=== PATIENT | male | born 1945 | race Caucasian/White ===

== ENCOUNTER 2016-07-11 16:07 | Inpatient (IN) | payer MEDICARE ==
[2016-07-11] VITALS (9 sets, daily range): BP systolic 106–159; BP diastolic 59–85; PULSE 70–104; RESP 20–24; TEMP 96.8–99.5; O2SAT 95–100
[~2016-07-11] VITALS: Ht 180.3 cm; Wt 91.6 kg
[2016-07-11] MEDS ORDERED: SODIUM CHLOR 0.9% 1000 ML INJ 1,000 ML IV ONE ×2 (16:10)
[2016-07-11] MEDS ORDERED: SODIUM CHLOR 0.9% 1000 ML INJ 100 ML IV ONE (16:10)
[2016-07-11] MEDS ORDERED: ACETAMINOPHEN 325 MG TAB PO ONE (16:15)
[2016-07-11] MEDS ORDERED: AZTREONAM INJ 2,000 MG in SODIUM CHLORIDE 0.9% INJ 100 ML IV ONE (16:15)
[2016-07-11] MEDS ORDERED: LEVOFLOXACIN 750 MG PREMIX INJ 150 ML IV ONE (16:15)
--- NOTE | 2016-07-11 16:20 | PD ---
HPI Chief Complaint: hypotension Time Seen by Provider: 16:10 Travel History International Travel<30 days: No Contact w/Intl Traveler<30days: No Traveled to known affect area: No History of Present Illness HPI 70-year-old male with history of head and neck cancer status post radiation therapy 15 years ago, brought in by EMS from home for evaluation of generalized malaise, shortness of breath, generalized weakness. The patient reports that for the past 4 days he has been feeling sick with cough and fevers between 99 and 100F. Today he took a leftover cefuroxime pill in his medicine cabinet, and shortly after became extremely weak. 911 was called and when they arrived they noted the patient had blood pressure of 80s over 40s, was diaphoretic, had O2 saturation in the 80's. Patient denies history of cardio pulmonary disease. Cough has been productive of whitish/yellowish sputum. No hemoptysis. No chest pain. No vomiting or diarrhea. No abdominal pain. No dyspnea. He was given a 500 cc normal saline bolus by EMS and was started on 100% nonrebreather mask. Upon arrival to the emergency department the patient reports that he feels improved. PFSH Social History Tobacco Use: No (Former smoker) Allergies-Medications (Allergen,Severity, Reaction): Coded Allergies: Amoxicillin (Verified Allergy, Unknown, 07/11/16) Cefuroxime sodium (Verified Allergy, Unknown, 07/11/16) Metronidazole (Verified Adverse Reaction, Severe, PATIENT REFUSES DUE TO SEVERE DIARRHEA FROM METRONIDAZOLE, 07/11/16) Reported Meds & Prescriptions Reported Meds & Active Scripts Active Reported Duoneb (Ipratropium-Albuterol Neb) 0.5-2.5 Mg/3 Ml Neb 1 Nebule INH Q4HR NEB Tramadol (Tramadol HCl) 50 Mg Tab 50 Mg PO Q6H PRN Levocetirizine 5 Mg Tab 5 Mg PO DAILY Levothyroxine (Levothyroxine Sodium) 175 Mcg Tab 175 Mcg PO DAILY Amlodipine (Amlodipine Besylate) 10 Mg Tab 10 Mg PO DAILY Losartan-Hydrochlorothiazide 100-12.5 Mg Tab 1 Tab PO DAILY Lansoprazole 30 Mg Capdr 30 Mg PO DAILY Temazepam 30 Mg Cap 30 Mg PO HS PRN Meclizine (Meclizine HCl) 25 Mg Tab 25 Mg PO QID PRN Review of Systems Except as stated in HPI: all other systems reviewed are Neg Physical Exam Narrative GENERAL: Well-developed, well-nourished, awake, alert, diaphoretic, SKIN: Diaphoretic. No rash. HEAD: Atraumatic. Normocephalic. EYES: Pupils equal and round. No scleral icterus. No injection or drainage. ENT: Mucous membranes pink and moist. No tongue or lip swelling. No drooling or stridor. Normal phonation. NECK: Trachea midline. No JVD. CARDIOVASCULAR: Tachycardic, regular. RESPIRATORY: No accessory muscle use. Clear to auscultation. Breath sounds equal bilaterally. GASTROINTESTINAL: Abdomen soft, non-tender, nondistended. Hepatic and splenic margins not palpable. MUSCULOSKELETAL: No obvious deformities. No clubbing. No cyanosis. Right upper extremity edema which patient states his lymphedema secondary to neck radiation and is unchanged. No lower extremity edema. NEUROLOGICAL: Awake and alert. No obvious cranial nerve deficits. Motor grossly within normal limits. Normal speech. PSYCHIATRIC: Appropriate mood and affect; insight and judgment normal. Data Data Last Documented VS Vital Signs Date Time Temp Pulse Resp B/P Pulse Ox O2 Delivery O2 Flow Rate FiO2 07/11/16 18:05 85 20 141/64 100 Nasal Cannula 2 07/11/16 16:54 96.8 Orders Electrocardiogram (07/11/16 16:10) Complete Blood Count With Diff (07/11/16 16:10) Comprehensive Metabolic Panel (07/11/16 16:10) Prothrombin Time / Inr (Pt) (07/11/16 16:10) Act Partial Throm Time (Ptt) (07/11/16 16:10) Lactic Acid Sepsis Protocol (07/11/16 16:10) Urinalysis - C+S If Indicated (07/11/16 16:10) Influenzae A/B Antigen (07/11/16 16:10) Blood Culture (07/11/16 16:10) Chest, Single Ap (07/11/16 16:10) Arterial Blood Gas (Abg) (07/11/16 16:10) Blood Glucose (07/11/16 16:10) Ecg Monitoring (07/11/16 16:10) Iv Access Insert/Monitor (07/11/16 16:10) Oximetry (07/11/16 16:10) Oxygen Administration (07/11/16 16:10) Acetaminophen (Tylenol) (07/11/16 16:15) Sodium Chlor 0.9% 1000 Ml Inj (Ns 1000 M (07/11/16 16:10) Sodium Chlor 0.9% 1000 Ml Inj (Ns 1000 M (07/11/16 16:10) Sodium Chlor 0.9% 1000 Ml Inj (Ns 1000 M (07/11/16 16:10) Aztreonam Inj (Azactam Inj) (07/11/16 16:15) Levofloxacin 750 Mg Premix Inj (Levaquin (07/11/16 16:15) Ckmb (Isoenzyme) Profile (07/11/16 16:21) Troponin I (07/11/16 16:21) Ct Pulmonary Angiogram (07/11/16 17:13) Iohexol 350 Inj (Omnipaque 350 Inj) (07/11/16 17:56) Admit Order (Ed Use Only) (07/11/16 18:22) Labs Laboratory Tests Test 07/11/16 16:30 White Blood Count 6.1 TH/MM3 Red Blood Count 4.43 MIL/MM3 Hemoglobin 13.6 GM/DL Hematocrit 39.8 % Mean Corpuscular Volume 89.8 FL Mean Corpuscular Hemoglobin 30.8 PG Mean Corpuscular Hemoglobin 34.3 % Concent Red Cell Distribution Width 12.9 % Platelet Count 290 TH/MM3 Mean Platelet Volume 7.3 FL Neutrophils (%) (Auto) 67.2 % Lymphocytes (%) (Auto) 28.7 % Monocytes (%) (Auto) 2.7 % Eosinophils (%) (Auto) 0.5 % Basophils (%) (Auto) 0.9 % Neutrophils # (Auto) 4.0 TH/MM3 Lymphocytes # (Auto) 1.8 TH/MM3 Monocytes # (Auto) 0.2 TH/MM3 Eosinophils # (Auto) 0.0 TH/MM3 Basophils # (Auto) 0.1 TH/MM3 CBC Comment DIFF FINAL Differential Comment Prothrombin Time 10.8 SEC Prothromb Time International 1.0 RATIO Ratio Activated Partial 24.0 SEC Thromboplast Time Blood Gas Puncture Site LT RADIAL Blood Gas Patient Temperature 98.6 Blood Gas HCO3 22 mmol/L Blood Gas Base Excess -2.9 mmol/L Blood Gas Oxygen Saturation 95 % Arterial Blood pH 7.37 Arterial Blood Partial 39 mmHG Pressure CO2 Arterial Blood Partial 92 mmHG Pressure O2 Arterial Blood Oxygen Content 18.3 Vol % Arterial Blood 1.4 % Carboxyhemoglobin Arterial Blood Methemoglobin 0.9 % Blood Gas Hemoglobin 13.7 G/DL Oxygen Delivery Device NONREBREATHER Blood Gas Liter Flow 15 L/M Sodium Level 138 MEQ/L Potassium Level 3.6 MEQ/L Chloride Level 104 MEQ/L Carbon Dioxide Level 26.1 MEQ/L Anion Gap 8 MEQ/L Blood Urea Nitrogen 21 MG/DL Creatinine 1.30 MG/DL Estimat Glomerular Filtration 55 ML/MIN Rate Random Glucose 175 MG/DL Lactic Acid Level 2.1 mmol/L Calcium Level 7.9 MG/DL Total Bilirubin 0.3 MG/DL Aspartate Amino Transf 14 U/L (AST/SGOT) Alanine Aminotransferase 20 U/L (ALT/SGPT) Alkaline Phosphatase 64 U/L Total Creatine Kinase 42 U/L Troponin I 0.03 NG/ML Total Protein 6.1 GM/DL Albumin 2.8 GM/DL [facility] Medical Decision Making Medical Screen Exam Complete: Yes Emergency Medical Condition: Yes Medical Record Reviewed: Yes Interpretation(s) EKG: Sinus, rate 98, normal axis, normal intervals, slight diffuse ST depressions, no ST segment elevations. No T-wave inversions. Differential Diagnosis Sepsis, pneumonia, metabolic abnormality, PE, allergic reaction/anaphylaxis Narrative Course Initial vital signs show heart rate 104, blood pressure 106/59, pulse ox 95% on 100% nonrebreather, rectal temp of 96.8F. CBC is unremarkable. CMP is remarkable for BUN 21, creatinine 1.3, GFR 55, random glucose 175, albumin 2.8, total protein 6.1. Lactic acid is 2.1. Troponin is 0.03. Chest x-ray: Mild right lower lung infiltrate. ABG on 100% nonrebreather: PH 7.37, PCO2 39, PO2 92, O2 saturation 95%. Patient and the patient's were made aware of all findings. 100% nonrebreather switched to nasal cannula. Patient was given 3 L normal saline IV and started on Azactam and Levaquin shortly after arrival to the emergency department for suspected pulmonary source for sepsis. Given history of cancer and above symptoms and lab findings, CT pulmonary room ordered to rule out PE. CT pulmonary angiogram: CONCLUSION: 1. No evidence of PE. 2. There are some patchy infiltrates in the right upper and right lower lung and a few scattered infiltrates in the left lung suggestive of an inflammatory process such as pneumonia. 3. There are chronic appearing parenchymal changes in both apices. 4. Nonspecific prominent mediastinal lymph nodes. If clinically indicated, recommend a PET CT for hypermetabolic evaluation. Patient was made aware of CT findings. He states he recently had a PET scan and was told that everything looks good. Patient's blood pressure has improved significantly to 140s over 80s after 3 L of normal saline IV. O2 saturation is now 100% on 2 L nasal cannula. Because the patient initially presented with hypotension and hypoxia, the patient will be admitted for further treatment and evaluation of sepsis and pneumonia. Case discussed with [facility] hospitalist Dr. Singh. The patient will be admitted to their service under Dr. Hairston. Critical Care Narrative Aggregate critical care time was 40 minutes. Time to perform other separately billable procedures was not included in the critical care time. My time did not include minutes spent treating any other patients simultaneously or on activities that did not directly contribute to the patient's treatment. The services I provided to this patient were to treat and/or prevent clinically significant deterioration that could result in: , permanent disability, worsening clinical condition, respiratory failure I provided critical care services requiring my management, as noted below: Chart data review, documentation time, medication orders and management, vital sign assessments/reviewing monitor data, ordering and reviewing lab tests, ordering and interpreting/reviewing x-rays and diagnostic studies, care of the patient and discussion of the patient with the admitting physicians. Diagnosis Primary Impression: Sepsis Qualified Code: A41.9 - Sepsis, due to unspecified organism Additional Impression: Pneumonia Qualified Code: J18.9 - Pneumonia of both lungs due to infectious organism, unspecified part of lung Admitting Information Admitting Physician Requests: Admit Eduarod Roach MD July 11, 2016 16:20
[2016-07-11] MEDS ORDERED: MECL-62 PO (16:21)
[2016-07-11] MEDS ORDERED: OMEP10CA PO (16:21)
[2016-07-11] MEDS ORDERED: PRED20 PO (16:21)
[2016-07-11] MEDS ORDERED: HTN MED (16:21)
[2016-07-11] MEDS ORDERED: TEMA7.5C PO (16:21)
[2016-07-11 16:38] LABS: BASOPHIL # 0.1 TH/MM3 (0-0.2); BASOPHIL % 0.9 % (0.0-2.0); BLOOD GAS BASE EXCESS -2.9 mmol/L (-2-2); BLOOD GAS CARBOXYHEMOGLOBIN 1.4 % (0-4); BLOOD GAS HCO3 22 mmol/L (22-26); BLOOD GAS METHEMOGLOBIN 0.9 % (0-2); BLOOD GAS O2 HGB SATURATION 95 % (90-100); BLOOD GAS OXYGEN CONTENT 18.3 Vol % (12.0-20.0); BLOOD GAS PCO2 39 mmHG (38-42); BLOOD GAS PO2 92 mmHG (61-120); BLOOD GAS TOTAL HGB 13.7 G/DL (12.0-16.0); CRITICAL VALUE NO; EOSINOPHIL % 0.5 % (0.0-4.0); HEMATOCRIT 39.8 % (39.0-51.0); HEMO FLAGS DIFF FINAL; LYMPH % 28.7 % (9.0-44.0); LYMPHOCYTE # 1.8 TH/MM3 (1.0-4.8); MEAN CELL VOLUME 89.8 FL (80.0-100.0); MEAN CORPUSCULAR HEMOGLOBIN 30.8 PG (27.0-34.0); MEAN CORPUSCULAR HGB CONC 34.3 % (32.0-36.0); MONO % 2.7 % (0.0-8.0); NEUT % 67.2 % (16.0-70.0); OXYGEN DEVICE NONREBREATHER; PLATELET COUNT 290 TH/MM3 (150-450); RED BLOOD COUNT 4.43 MIL/MM3 (4.50-5.90); RED CELL DISTRIBUTION WIDTH 12.9 % (11.6-17.2); TEMP CORR TO 98.6; WHITE BLOOD COUNT 6.1 TH/MM3 (4.0-11.0)
[2016-07-11 16:39] LABS: DRAW SITE LT RADIAL; LITER FLOW 15 L/M; NUMBER OF ARTERIAL PUNCTURES 2; STAT YES; ULNAR PULSE PRESENT
[2016-07-11 16:46] LABS: CHLORIDE 104 MEQ/L (98-107); POTASSIUM 3.6 MEQ/L (3.5-5.1); SODIUM (NA) 138 MEQ/L (136-145)
--- NOTE | 2016-07-11 16:46 | RADHPO ---
EXAM DATE/TIME: 07/11/2016 16:31 [facility] COMPARISON: No previous studies available for comparison. INDICATIONS : Patient extremely short of breath, reddness in face with swelling in face and right arm. MEDICAL HISTORY : None. SURGICAL HISTORY : None. ENCOUNTER: Initial ACUITY: 1 day PAIN SCORE: 7/10 LOCATION: Bilateral upper chest FINDINGS: A single view of the chest demonstrates a mild infiltrate in the right lung base. Otherwise, the lung s are grossly clear.. The cardiomediastinal contours are unremarkable. Osseous structures are intac t. CONCLUSION: Mild right lower lung infiltrate. Parviz Chen MD on July 11, 2016 at 16:41 Board Certified Radiologist. This report was verified electronically.
[2016-07-11 16:50] LABS: ANION GAP 8 MEQ/L (5-15); BICARBONATE 26.1 MEQ/L (21.0-32.0); BLOOD UREA NITROGEN 21 MG/DL (7-18)
[2016-07-11 16:53] LABS: ALT (GPT) 20 U/L (12-78); AST (GOT) 14 U/L (15-37); GLOMERULAR FILTRATION RATE 55 ML/MIN (>89)
[2016-07-11 16:55] LABS: TOTAL BILIRUBIN ADULT 0.3 MG/DL (0.2-1.0)
[2016-07-11 16:56] LABS: ALKALINE PHOSPHATASE 64 U/L (45-117)
[2016-07-11 16:58] LABS: PROTHROMBIN TIME - PATIENT 10.8 SEC (9.8-11.6)
[2016-07-11] MEDS ORDERED: IOHEXOL 350 MG/ML 10 ML VIAL (for RAD DIAG) IV ONE (17:56)
--- NOTE | 2016-07-11 18:04 | RADHPO ---
EXAM DATE/TIME: 07/11/2016 17:43 [facility] COMPARISON: No previous studies available for comparison. INDICATIONS : Weak, hypotensive and diaphoretic. Evaluate for embolism. IV CONTRAST: 65 cc Omnipaque 350 (iohexol) IV RADIATION DOSE: 19.98 CTDIvol (mGy) MEDICAL HISTORY : Hypertension. Deep venous thrombosis. Gastroesophageal reflux disease. SURGICAL HISTORY : None. ENCOUNTER: Initial ACUITY: 1 day PAIN SCALE: 0/10 LOCATION: chest TECHNIQUE: Volumetric scanning of the chest was performed using a pulmonary embolism protocol MIP images were re constructed. Using automated exposure control and adjustment of the mA and/or kV according to patien t size, radiation dose was kept as low as reasonably achievable to obtain optimal diagnostic quality images. FINDINGS: PULMONARY ARTERIES: No filling defects are seen in the pulmonary arteries through the segmental level. LUNGS: There are some changes in both apices which I suspect are chronic. However there is a patchy reticula r nodular infiltrate in the right upper lung. A few small scattered infiltrates are seen in the left lung. The appearance is suggestive of an inflammatory process such as pneumonia. There is also patchy infiltrate in the posterior right lung base. PLEURAE: There is no pleural thickening or pleural effusion. MEDIASTINUM: There is some nonspecific prominent mediastinal lymph nodes. The largest lymph node measures 2.7 cm a long the right paratracheal margin. There is a mildly prominent right hilar lymph node. MUSCULOSKELETAL: Within normal limits for patient age. MISCELLANEOUS: The visualized upper abdominal organs demonstrate no acute abnormality. CONCLUSION: 1. No evidence of PE. 2. There are some patchy infiltrates in the right upper and right lower lung and a few scattered infi ltrates in the left lung suggestive of an inflammatory process such as pneumonia. 3. There are chronic appearing parenchymal changes in both apices. 4. Nonspecific prominent mediastinal lymph nodes. If clinically indicated, recommend a PET CT for hyp ermetabolic evaluation. Parviz Chen MD on July 11, 2016 at 17:58 Board Certified Radiologist. This report was verified electronically.
[2016-07-11] MEDS: SODIUM CHLOR 0.9% 1000 ML INJ 1,000 ML IV SCH (18:28)
[2016-07-11] MEDS ORDERED: SODIUM CHLORIDE 0.9% FLUSH 10 ML FLUSH IV FLUSH PRN (18:30)
[2016-07-11] MEDS ORDERED: RESP: ALBUTEROL 2.5 MG/IPRATROPIUM 0.5 MG NEB (PRN) INH (18:30)
[2016-07-11 18:32] LABS: LACTIC ACID GHOST NOT REPORTABLE
[2016-07-11] MEDS ORDERED: LEVO-154 PO (18:43)
[2016-07-11] MEDS ORDERED: TEMA30CA PO (18:43)
[2016-07-11] MEDS ORDERED: AMLO10TA2 PO (18:43)
[2016-07-11] MEDS ORDERED: LOSA100T3 PO (18:43)
[2016-07-11] MEDS ORDERED: LEVOTAB PO (18:43)
[2016-07-11] MEDS ORDERED: LANS30CA PO (18:43)
[2016-07-11] MEDS ORDERED: RESP: ALBUTEROL 2.5 MG/IPRATROPIUM 0.5 MG NEB (PRN) NEB (18:45)
[2016-07-11] MEDS ORDERED: MECLIZINE HCL 25 MG TAB PO PRN (18:45)
[2016-07-11] MEDS ORDERED: metroNIDAZOLE 500 MG INJ 100 ML IV SCH (20:00)
[2016-07-11] MEDS: HEPARIN SODIUM - SQ 10,000 UNITS/ML VIAL SQ SCH (20:01)
[2016-07-11] MEDS ORDERED: IPRASOL INH (20:29)
[2016-07-11] MEDS ORDERED: TRAM50TA PO (20:29)
[2016-07-11] MEDS ORDERED: diphenhydrAMINE HCL 50 MG/ML VIAL IV PUSH ONE (20:45)
[2016-07-11] MEDS: RESP: ALBUTEROL 2.5 MG/IPRATROPIUM 0.5 MG NEB (SCH) INH (21:48)
[2016-07-11] MEDS ORDERED: CHLORHEXIDINE GLUCONATE 2 % 1 PACK (2 CLOTHS)(extra cloths) TOPICAL PRN (22:00)
[2016-07-11] MEDS ORDERED: FAMOTIDINE 20 MG/2 ML VIAL IV ONE (22:15)
[2016-07-11] MEDS ORDERED: methylPREDNISolone SOD SUCC 125 MG/2 ML VIAL IV ONE (22:15)
[2016-07-11] MEDS: diphenhydrAMINE HCL 50 MG/ML VIAL IV PRN (22:22)
[2016-07-11] MEDS: SODIUM CHLORIDE FLUSH BID IV FLUSH SCH (22:22)
[2016-07-11 22:26] LABS: BLOOD, URINE NEG (NEG); GLUCOSE,URINE NEG (NEG); KETONE, URINE TRACE mg/dL (NEG); NITRITE,URINE NEG (NEG)
[2016-07-11 22:37] LABS: URINE COLOR YELLOW (YELLW/STRAW)
[2016-07-11 22:39] LABS: SQUAMOUS EPITHELIAL CELL URINE 0-5 /hpf (0-5); WBC, URINE 0-2 /hpf (0-5)
[2016-07-11 22:40] LABS: COMMENT (UR) CATH-CULT NOT IND; CULTURE IF INDICATED CATH CULTURE NOT IND
[2016-07-12] VITALS (18 sets, daily range): BP systolic 137–159; BP diastolic 65–88; PULSE 76–98; RESP 16–24; TEMP 97–99.4; O2SAT 95–100
[2016-07-12] MEDS: AZTREONAM INJ 2,000 MG in SODIUM CHLORIDE 0.9% INJ 100 ML IV SCH ×3 (02:06→16:21)
[2016-07-12] MEDS: CHLORHEXIDINE GLUCONATE 2 % 1 PACK (2 CLOTHS)(taper/protocol) TOPICAL SCH (02:41)
[2016-07-12] MEDS: RESP: ALBUTEROL 2.5 MG/IPRATROPIUM 0.5 MG NEB (SCH) INH ×6 (03:23→23:20)
[2016-07-12] MEDS: diphenhydrAMINE HCL 50 MG/ML VIAL IV PRN ×3 (04:35→21:47)
[2016-07-12 05:12] LABS: AUTOMATED NEUTROPHIL # 14.8 TH/MM3 (1.8-7.7); BASOPHIL # 0.2 TH/MM3 (0-0.2); BASOPHIL % 1.5 % (0.0-2.0); EOSINOPHIL % 0.2 % (0.0-4.0); HEMATOCRIT 37.5 % (39.0-51.0); LYMPH % 1.4 % (9.0-44.0); LYMPHOCYTE # 0.2 TH/MM3 (1.0-4.8); MEAN CELL VOLUME 90.2 FL (80.0-100.0); MEAN CORPUSCULAR HEMOGLOBIN 30.5 PG (27.0-34.0); MEAN CORPUSCULAR HGB CONC 33.8 % (32.0-36.0); MONO % 0.7 % (0.0-8.0); NEUT % 96.2 % (16.0-70.0); PLATELET COUNT 209 TH/MM3 (150-450); RED BLOOD COUNT 4.15 MIL/MM3 (4.50-5.90); RED CELL DISTRIBUTION WIDTH 13.3 % (11.6-17.2); WHITE BLOOD COUNT 15.3 TH/MM3 (4.0-11.0)
[2016-07-12 05:13] LABS: HEMO FLAGS DIFF FINAL
[2016-07-12 05:54] LABS: INDIRECT BILIRUBIN 0.2 MG/DL (0.0-0.8); TOTAL BILIRUBIN ADULT 0.3 MG/DL (0.2-1.0)
[2016-07-12] MEDS: SODIUM CHLOR 0.9% 1000 ML INJ 1,000 ML IV SCH (06:35)
[2016-07-12] MEDS: HEPARIN SODIUM - SQ 10,000 UNITS/ML VIAL SQ SCH ×2 (08:27→21:39)
[2016-07-12] MEDS: SODIUM CHLORIDE FLUSH BID IV FLUSH SCH ×2 (08:27→21:48)
[2016-07-12] MEDS: PANTOPRAZOLE SOD 40 MG DELAYED RELEASE TAB PO SCH (08:27)
--- NOTE | 2016-07-12 08:33 | MH ---
cc: TOBIN QUIÑONEZ MD DATE OF ADMISSION: 07/11/2016 CHIEF COMPLAINT Hypertension. HISTORY OF PRESENT ILLNESS A 70-year male with past medical/surgical history significant for head and neck cancer status post radiation therapy 15 years ago, history of hypothyroidism, obesity, COPD, history of arthritis, hypertension, gastroesophageal reflux disease, insomnia, dizziness, and also has a history of port placement and appendectomy. He came to the ER at [facility], brought by the ambulance from the home for evaluation of generalized malaise, weakness, shortness of breath and the patient reports that for the past four days he has been feeling sick with cough and congestion and bringing up some yellow phlegm and had a fever of 99-100 and he took leftover cefuroxime pills in his medicine cabinet and shortly after became extremely weak. was called and the patient brought to the [facility] with a blood pressure systolic was 80s. Blood pressure was 80/40 and he was diaphoretic and had an saturation in the 80s. The patient denies any history of cardiopulmonary disease, cough, denies any chest pain at that time. Denies any nausea or vomiting and denies any black stool, blood in stool or any bleeding anywhere from the body. Denies any painful urination, burning urination. Denies any other symptoms. Other than that, nothing significant. PAST MEDICAL AND SURGICAL HISTORY As dictated above. SOCIAL HISTORY Denies smoking, drinking or taking any drugs. Lives at home. FAMILY HISTORY Nothing significant. ALLERGIES AMOXICILLIN. CEFUROXIME. METRONIDAZOLE. MEDICATIONS 1. DuoNeb nebulization q. 4-hours. 2. Tramadol 50 mg q. 6-hours. 3. Levocetirizine 5 mg p.o. daily. 4. Levothyroxine 175 mcg p.o. daily. 5. Amlodipine 10 mg p.o. daily. 6. Losartan. 7. Hydrochlorothiazide 100/12.5 mg p.o. daily. 8. Prevacid 30 mg p.o. daily. 9. Temazepam 30 mg p.o. at bedtime. 10. Meclizine 25 mg p.o. q.i.d. p.r.n. dizziness. REVIEW OF SYSTEMS All review of systems are negative at the time of examination except for cough, congestion, bringing up some yellow phlegm and mild feeling weakness and tiredness and obesity. PHYSICAL EXAMINATION GENERAL: This is a 70-year-old male laying in the bed, not in acute distress. VITAL SIGNS: Temperature is 98.2, heart rate 90, respirations 20, blood pressure 141/75, O2 saturation 95% room air. HEENT: Normocephalic, atraumatic. EOMI. PERRL. Oral mucosa moist. NECK: Supple. No visible thyromegaly or neck mass. Trachea central. CVS: Regular rate and rhythm. RESPIRATIONS: Bilateral mild crackles. ABDOMEN: Soft, obese, nontender. Bowel sounds good. LOWER EXTREMITIES: No cyanosis, no clubbing. Full range of motion of all extremities. NEURO: Awake and oriented x 4. No focal deficits. SKIN: Warm and dry. PSYCH: The patient is cooperative. Mood and affect are normal. LABORATORY DATA CBC totally unremarkable except for WBC count 15.3 - high, hemoglobin 4.1 - low, RBC count is 4.1 - low, hemoglobin is 12.6 - low, hematocrit 37.5 - low, neutrophil is 96.2 - high. ABG was done, shows pH of 7.37 with pCO2 of 39 with pO2 92 and temperature 98.6, bicarb 22. PT 10.8, INR 0.0, PTT 24.0. Urine examination done shows trace of ketones, MRSA not detected C diff toxin antigen was pending. Influenza A and B negative. Blood cultures x 2 done are negative so far. CHEST X-RAY Done and shows mild right lower lobe infiltrate. CT ANGIO PULMONARY Done to rule out pulmonary embolism, shows no evidence of PE. There are some patchy infiltrate in the right upper and right lower lung with a few scattered infiltrates in the left lung suggestive of inflammatory process such as pneumonia. There are chronic-appearing parenchymal changes in both apices, nonspecific prominent mediastinal lymph node enlargement. ASSESSMENT AND PLAN This is a 70-year male who came to the ER, diagnosed with - 1. Sepsis on admission. The patient had hypotension with diaphoresis and with a pneumonia, most probably sepsis from pneumonia. The patient is on Zithromax 500 mg IV daily and aztreonam IV q. 8 hours. The patient got Solu-Medrol and Levaquin. The patient's blood pressure is normal now. The patient also on DuoNeb nebulization. 2. Hypotension, most likely secondary to septic shock. The patient got IV fluids and Solu-Medrol and blood pressure is better now. 3. History of COPD. Continue home medications. 4. History of arthritis. Continue home medications. 5. History of hypothyroidism. Continue with levothyroxine 175 mcg p.o. daily . 6. History of hypertension. Continue the blood pressure medicine. We will monitor blood pressure closely. 7. History of insomnia. Continue home medication . 8. GERD. Protonix 40 mg p.o. daily. 9. DVT prophylaxis. Heparin 5000 units subcutaneous twice a day. 10. GI prophylaxis. Protonix 40 mg p.o. daily. 11. Dizziness. Continue with meclizine. 12. Check CBC and CMP tomorrow. We are going to manage the patient on a daily basis and make recommendation on a daily basis. Tobin Quiñonez MD EA/ADELINA /7:57 AM /8:15 AM
[2016-07-12] MEDS ORDERED: traMADol HCL 50 MG TAB PO PRN (11:30)
[2016-07-12] MEDS ORDERED: NON-FORMULARY DRUG (Losartan-Hydrochlorothiazide 1 TAB) PO SCH (11:30)
[2016-07-12] MEDS ORDERED: TEMAZEPAM 15 MG CAP PO PRN (11:30)
[2016-07-12] MEDS ORDERED: NON-FORMULARY DRUG (Lansoprazole 30 MG) PO SCH (11:30)
[2016-07-12 11:35] LABS: C. DIFF EPI 027 PRESUMPTIVE NEGATIVE (NEGATIVE); C. DIFF TOXIN PCR POSITIVE (NEGATIVE)
[2016-07-12] MEDS: LEVOTHYROXINE SODIUM 100 MCG TAB PO SCH (12:18)
[2016-07-12] MEDS: HYDROCHLOROTHIAZIDE 12.5 MG CAP PO SCH (12:18)
[2016-07-12] MEDS: LOSARTAN 50 MG TAB PO SCH (12:18)
[2016-07-12] MEDS: CETIRIZINE HCL 10 MG TAB PO SCH (12:18)
[2016-07-12] MEDS: LEVOTHYROXINE SODIUM 75 MCG TAB PO SCH (12:18)
--- NOTE | 2016-07-12 14:01 | EKG ---
Date Performed: 07/11/2016 Time Performed: 16:15:12 PTAGE: 70 years EKG: Sinus rhythm ST junctional depression is nonspecific Borderline ECG NO PREVIOUS TRACING DOCTOR: Delgado Steiner Interpretating Date/Time 07/12/2016 14:00:07
[2016-07-12] MEDS ORDERED: diphenhydrAMINE HCL 25 MG CAP PO ONE (15:30)
[2016-07-12] MEDS ORDERED: diphenhydrAMINE HCL 25 MG CAP PO PRN (15:30)
[2016-07-12] MEDS: VANCOMYCIN 500 MG VIAL (FOR ORAL USE ONLY) PO SCH ×2 (16:19→21:37)
[2016-07-12] MEDS: AZITHROMYCIN INJ 500 MG in SODIUM CHLOR 0.9% 250 ML INJ 250 ML IV SCH (17:11)
[2016-07-13] VITALS (8 sets, daily range): BP systolic 140–162; BP diastolic 69–86; PULSE 65–90; RESP 19–20; TEMP 97.6–98.4; O2SAT 95–100
[2016-07-13] MEDS: RESP: ALBUTEROL 2.5 MG/IPRATROPIUM 0.5 MG NEB (SCH) INH ×6 (03:34→23:10)
[2016-07-13] MEDS: CHLORHEXIDINE GLUCONATE 2 % 1 PACK (2 CLOTHS)(taper/protocol) TOPICAL SCH (04:00)
[2016-07-13] MEDS: AZTREONAM INJ 2,000 MG in SODIUM CHLORIDE 0.9% INJ 100 ML IV SCH ×3 (04:29→17:56)
[2016-07-13] MEDS: diphenhydrAMINE HCL 50 MG/ML VIAL IV PRN (04:30)
[2016-07-13] MEDS: SODIUM CHLOR 0.9% 1000 ML INJ 1,000 ML IV SCH ×2 (04:30→13:22)
[2016-07-13] MEDS: LEVOTHYROXINE SODIUM 75 MCG TAB PO SCH (05:30)
[2016-07-13] MEDS: LEVOTHYROXINE SODIUM 100 MCG TAB PO SCH (05:30)
[2016-07-13 07:52] LABS: AUTOMATED NEUTROPHIL # 7.3 TH/MM3 (1.8-7.7); BASOPHIL % 0.2 % (0.0-2.0); EOSINOPHIL % 0.4 % (0.0-4.0); HEMATOCRIT 31.6 % (39.0-51.0); LYMPH % 7.5 % (9.0-44.0); LYMPHOCYTE # 0.6 TH/MM3 (1.0-4.8); MEAN CELL VOLUME 91.7 FL (80.0-100.0); MEAN CORPUSCULAR HEMOGLOBIN 30.3 PG (27.0-34.0); MONO % 5.6 % (0.0-8.0); NEUT % 86.3 % (16.0-70.0); PLATELET COUNT 183 TH/MM3 (150-450); RED BLOOD COUNT 3.45 MIL/MM3 (4.50-5.90); RED CELL DISTRIBUTION WIDTH 13.3 % (11.6-17.2); WHITE BLOOD COUNT 8.4 TH/MM3 (4.0-11.0)
[2016-07-13 07:58] LABS: HEMO FLAGS DIFF FINAL
[2016-07-13 08:01] LABS: CHLORIDE 108 MEQ/L (98-107); SODIUM (NA) 142 MEQ/L (136-145)
[2016-07-13 08:07] LABS: ANION GAP 7 MEQ/L (5-15); BICARBONATE 27.3 MEQ/L (21.0-32.0)
[2016-07-13 08:08] LABS: BLOOD UREA NITROGEN 14 MG/DL (7-18)
[2016-07-13 08:10] LABS: ALT (GPT) 21 U/L (12-78); AST (GOT) 9 U/L (15-37)
[2016-07-13 08:11] LABS: GLOMERULAR FILTRATION RATE 110 ML/MIN (>89); TOTAL BILIRUBIN ADULT 0.2 MG/DL (0.2-1.0)
[2016-07-13 08:13] LABS: ALKALINE PHOSPHATASE 51 U/L (45-117)
--- NOTE | 2016-07-13 08:43 | HHI.PR ---
Subjective History of Present Illness Patient feel better diarrhea resolved no acute issue d/w RN at bed side WBC Count normal today. Review of Systems Constitutional Constitutional: Fatigue, Weakness Pulmonary Respiratory: Coughing, Shortness of Breath, Wheezing Vitals/Results Intake & Output 07/12/16 07/12/16 07/13/16 15:00 23:00 07:00 Intake Total 210 ml 240 ml 60 ml Balance 210 ml 240 ml 60 ml Intake Oral 210 ml 240 ml 60 ml # Voids 3 2 2 # Bowel Movements 1 0 0 Vital Signs Vital Signs Date Time Temp Pulse Resp B/P Pulse Ox O2 Delivery O2 Flow Rate FiO2 07/13/16 07:24 95 21 07/13/16 04:00 97.8 65 20 152/84 99 07/13/16 00:00 97.6 87 20 140/69 97 07/12/16 20:00 98.0 88 20 137/67 97 07/12/16 19:14 99 21 07/12/16 18:00 94 07/12/16 16:00 97.0 94 24 144/75 97 07/12/16 16:00 94 07/12/16 12:15 97.1 98 20 155/88 100 07/12/16 12:00 95 07/12/16 10:48 98 21 07/12/16 10:00 98 07/12/16 09:01 98 CBC/BMP: 07/13/16 0647 07/13/16 0647 Lab Results Laboratory Tests Test 07/13/16 06:47 White Blood Count 8.4 TH/MM3 Red Blood Count 3.45 MIL/MM3 Hemoglobin 10.4 GM/DL Hematocrit 31.6 % Mean Corpuscular Volume 91.7 FL Mean Corpuscular Hemoglobin 30.3 PG Mean Corpuscular Hemoglobin 33.0 % Concent Red Cell Distribution Width 13.3 % Platelet Count 183 TH/MM3 Mean Platelet Volume 7.1 FL Neutrophils (%) (Auto) 86.3 % Lymphocytes (%) (Auto) 7.5 % Monocytes (%) (Auto) 5.6 % Eosinophils (%) (Auto) 0.4 % Basophils (%) (Auto) 0.2 % Neutrophils # (Auto) 7.3 TH/MM3 Lymphocytes # (Auto) 0.6 TH/MM3 Monocytes # (Auto) 0.5 TH/MM3 Eosinophils # (Auto) 0.0 TH/MM3 Basophils # (Auto) 0.0 TH/MM3 CBC Comment DIFF FINAL Differential Comment Sodium Level 142 MEQ/L Potassium Level 4.0 MEQ/L Chloride Level 108 MEQ/L Carbon Dioxide Level 27.3 MEQ/L Anion Gap 7 MEQ/L Blood Urea Nitrogen 14 MG/DL Creatinine 0.71 MG/DL Estimat Glomerular Filtration 110 ML/MIN Rate Random Glucose 120 MG/DL Calcium Level 8.5 MG/DL Total Bilirubin 0.2 MG/DL Aspartate Amino Transf 9 U/L (AST/SGOT) Alanine Aminotransferase 21 U/L (ALT/SGPT) Alkaline Phosphatase 51 U/L Total Protein 6.1 GM/DL Albumin 2.9 GM/DL Physical Exam General General Appearance: Well Developed, Well Nourished, No Acute Distress, Comfortable Eyes Eye Exam: Pupils Equal, Pupils Reactive, Sclera White, Extraocular Movement Intact Ears & Nose Ears & Nose Exam: Nasal Mucosa [place] Throat Throat Exam: Oral Pharynx Normal Neck Neck Exam: Neck Supple, Trachea Midline Pulmonary Resp Remarks Bilateral wheezing...mild. Cardiology CV Exam: Regular, Normal Sinus Rhythm Gastrointestinal/Abdomen GI Exam: Soft, Non-Tender, Bowel Sounds Present Musculoskeletal MS Exam: Normal Gait, Normal Tone Integumentary Skin Exam: Clear, Warm, Dry Neurologic Neuro Exam: Alert, Awake, Speech Clear, Moving All Extremities, No Focal Deficits Psychiatric Psych Exam: Appropriate Responses VTE Prophylaxis VTE Prophylaxis Meds: Heparin PUD Prophylasis PUD Prophylaxis: Protonix Assessment/Plan Assessment/Plan ASSESSMENT AND PLAN This is a 70-year male who came to the ER, diagnosed with - 1. Sepsis on admission. The patient had hypotension with diaphoresis and with a pneumonia, most probably sepsis from pneumonia. The patient is on Zithromax 500 mg IV daily and aztreonam IV q. 8 hours. The patient's blood pressure is normal now. The patient also on DuoNeb nebulization. 2. Hypotension, most likely secondary to septic shock. The patient got IV fluids and Solu-Medrol and blood pressure is better now. 3. History of COPD. Continue home medications. 4. History of arthritis. Continue home medications. 5. History of hypothyroidism. Continue with levothyroxine 175 mcg p.o. daily . 6. History of hypertension. Continue the blood pressure medicine. We will monitor blood pressure closely. 7. History of insomnia. Continue home medication . 8. GERD. Protonix 40 mg p.o. daily. 9. DVT prophylaxis. Heparin 5000 units subcutaneous twice a day. 10. GI prophylaxis. Protonix 40 mg p.o. daily. 11. Dizziness. Continue with meclizine. 12. Diarrhea ...c- diff toxin positive on vancomycin PO. 13. Check CBC and CMP tomorrow. We are going to manage the patient on a daily basis and make recommendation on a daily basis. Discussed Condition with: Patient Tobin Hairston MD July 13, 2016 08:43
[2016-07-13] MEDS: VANCOMYCIN 500 MG VIAL (FOR ORAL USE ONLY) PO SCH ×4 (09:35→21:52)
[2016-07-13] MEDS: PANTOPRAZOLE SOD 40 MG DELAYED RELEASE TAB PO SCH (09:35)
[2016-07-13] MEDS: HYDROCHLOROTHIAZIDE 12.5 MG CAP PO SCH (09:36)
[2016-07-13] MEDS: LOSARTAN 50 MG TAB PO SCH (09:36)
[2016-07-13] MEDS: SODIUM CHLORIDE FLUSH BID IV FLUSH SCH ×2 (09:36→21:52)
[2016-07-13] MEDS: HEPARIN SODIUM - SQ 10,000 UNITS/ML VIAL SQ SCH ×2 (09:36→21:51)
[2016-07-13] MEDS: CETIRIZINE HCL 10 MG TAB PO SCH (09:36)
[2016-07-13] MEDS: AZITHROMYCIN INJ 500 MG in SODIUM CHLOR 0.9% 250 ML INJ 250 ML IV SCH (17:56)
--- NOTE | 2016-07-13 18:44 | HHI.PR ---
Subjective Remarks 70 YOWM with COPD, Lung infilt Feels much better no Diarrhoea no Fever Objective Vital Signs Vital Signs Date Time Temp Pulse Resp B/P Pulse Ox O2 Delivery O2 Flow Rate FiO2 07/13/16 16:00 98.0 79 19 153/77 98 07/13/16 08:00 98.4 66 19 142/75 100 07/13/16 07:24 95 21 07/13/16 04:00 97.8 65 20 152/84 99 07/13/16 00:00 97.6 87 20 140/69 97 07/12/16 20:00 98.0 88 20 137/67 97 07/12/16 19:14 99 21 I/O 07/12/16 07/12/16 07/12/16 07/13/16 07/13/16 07/13/16 07:00 15:00 23:00 07:00 15:00 23:00 Intake Total 760 ml 210 ml 240 ml 60 ml Output Total 2050 ml Balance -1290 ml 210 ml 240 ml 60 ml Intake Oral 220 ml 210 ml 240 ml 60 ml IV Total 540 ml Output Urine Total 2050 ml # Voids 2 3 2 2 # Bowel Movements 1 1 0 0 Result Diagram: 07/13/16 0647 07/13/16 0647 Objective Remarks GENERAL: WBWn male NAD SKIN: Warm and dry. HEAD: Normocephalic. EYES: No scleral icterus. No injection or drainage. NECK: Supple, trachea midline. No JVD or lymphadenopathy. CARDIOVASCULAR: Regular rate and rhythm without murmurs, gallops, or rubs. RESPIRATORY: Breath sounds equal bilaterally. No accessory muscle use. GASTROINTESTINAL: Abdomen soft, non-tender, nondistended. MUSCULOSKELETAL: No cyanosis, or edema. BACK: Nontender without obvious deformity. No CVA tenderness. A/P Assessment and Plan COPD lung infilt C.diff positive HTN GERD PLAN: Cont Abx Check cultures PO Vanco Aerosol nebs Dw pt and his Will need rot CT chest 4-5 weeks to document clearing of infilterates. Harvinder Tate MD July 13, 2016 18:44
[2016-07-14] MEDS: SODIUM CHLOR 0.9% 1000 ML INJ 1,000 ML IV SCH (02:05)
[2016-07-14 02:20] VITALS: BP 178/95; PULSE 62; RESP 20; TEMP 96.3; O2SAT 97
[2016-07-14] MEDS: AZTREONAM INJ 2,000 MG in SODIUM CHLORIDE 0.9% INJ 100 ML IV SCH ×2 (02:24→08:43)
[2016-07-14 04:00] VITALS: BP 177/89; PULSE 89; RESP 19; TEMP 97.6; O2SAT 98
[2016-07-14] MEDS: CHLORHEXIDINE GLUCONATE 2 % 1 PACK (2 CLOTHS)(taper/protocol) TOPICAL SCH (04:00)
[2016-07-14] MEDS: RESP: ALBUTEROL 2.5 MG/IPRATROPIUM 0.5 MG NEB (SCH) INH ×2 (04:35→07:38)
[2016-07-14] MEDS: LEVOTHYROXINE SODIUM 75 MCG TAB PO SCH (05:09)
[2016-07-14] MEDS: LEVOTHYROXINE SODIUM 100 MCG TAB PO SCH (05:09)
[2016-07-14 07:41] LABS: AUTOMATED NEUTROPHIL # 4.6 TH/MM3 (1.8-7.7); BASOPHIL % 0.3 % (0.0-2.0); CHLORIDE 103 MEQ/L (98-107); EOSINOPHIL # 0.2 TH/MM3 (0-0.4); EOSINOPHIL % 2.9 % (0.0-4.0); HEMO FLAGS DIFF FINAL; LYMPH % 15.4 % (9.0-44.0); LYMPHOCYTE # 0.9 TH/MM3 (1.0-4.8); MEAN CELL VOLUME 91.7 FL (80.0-100.0); MEAN CORPUSCULAR HEMOGLOBIN 30.7 PG (27.0-34.0); MEAN CORPUSCULAR HGB CONC 33.5 % (32.0-36.0); MONO % 6.7 % (0.0-8.0); NEUT % 74.7 % (16.0-70.0); PLATELET COUNT 211 TH/MM3 (150-450); POTASSIUM 3.8 MEQ/L (3.5-5.1); RED BLOOD COUNT 3.93 MIL/MM3 (4.50-5.90); RED CELL DISTRIBUTION WIDTH 13.8 % (11.6-17.2); SODIUM (NA) 140 MEQ/L (136-145); WHITE BLOOD COUNT 6.1 TH/MM3 (4.0-11.0)
[2016-07-14 07:56] LABS: ALKALINE PHOSPHATASE 64 U/L (45-117); ALT (GPT) 35 U/L (12-78); ANION GAP 7 MEQ/L (5-15); AST (GOT) 20 U/L (15-37); BICARBONATE 29.8 MEQ/L (21.0-32.0); BLOOD UREA NITROGEN 11 MG/DL (7-18); GLOMERULAR FILTRATION RATE 114 ML/MIN (>89); TOTAL BILIRUBIN ADULT 0.3 MG/DL (0.2-1.0)
[2016-07-14 08:00] VITALS: BP 181/92; PULSE 85; RESP 20; TEMP 97.3; O2SAT 98
--- NOTE | 2016-07-14 08:23 | HHI.PR ---
Subjective History of Present Illness Patient feel better diarrhea resolved no acute issue WBC Count normal today. wants to go home today...ok to dc home today. Review of Systems Constitutional Constitutional: Fatigue, Weakness Pulmonary Respiratory: Coughing, Shortness of Breath, Wheezing Vitals/Results Intake & Output 07/13/16 07/13/16 07/14/16 15:00 23:00 07:00 Intake Total 240 ml Balance 240 ml Intake Oral 240 ml # Voids 3 Vital Signs Vital Signs Date Time Temp Pulse Resp B/P Pulse Ox O2 Delivery O2 Flow Rate FiO2 07/14/16 04:00 97.6 89 19 177/89 98 07/14/16 02:20 96.3 62 20 178/95 97 07/13/16 20:15 74 07/13/16 20:00 98.2 90 20 162/86 99 07/13/16 19:50 98 21 07/13/16 16:00 98.0 79 19 153/77 98 CBC/BMP: 07/14/16 0700 07/14/16 0700 Lab Results Laboratory Tests Test 07/14/16 07:00 White Blood Count 6.1 TH/MM3 Red Blood Count 3.93 MIL/MM3 Hemoglobin 12.1 GM/DL Hematocrit 36.0 % Mean Corpuscular Volume 91.7 FL Mean Corpuscular Hemoglobin 30.7 PG Mean Corpuscular Hemoglobin 33.5 % Concent Red Cell Distribution Width 13.8 % Platelet Count 211 TH/MM3 Mean Platelet Volume 6.7 FL Neutrophils (%) (Auto) 74.7 % Lymphocytes (%) (Auto) 15.4 % Monocytes (%) (Auto) 6.7 % Eosinophils (%) (Auto) 2.9 % Basophils (%) (Auto) 0.3 % Neutrophils # (Auto) 4.6 TH/MM3 Lymphocytes # (Auto) 0.9 TH/MM3 Monocytes # (Auto) 0.4 TH/MM3 Eosinophils # (Auto) 0.2 TH/MM3 Basophils # (Auto) 0.0 TH/MM3 CBC Comment DIFF FINAL Differential Comment Sodium Level 140 MEQ/L Potassium Level 3.8 MEQ/L Chloride Level 103 MEQ/L Carbon Dioxide Level 29.8 MEQ/L Anion Gap 7 MEQ/L Blood Urea Nitrogen 11 MG/DL Creatinine 0.69 MG/DL Estimat Glomerular Filtration 114 ML/MIN Rate Random Glucose 98 MG/DL Calcium Level 9.3 MG/DL Total Bilirubin 0.3 MG/DL Aspartate Amino Transf 20 U/L (AST/SGOT) Alanine Aminotransferase 35 U/L (ALT/SGPT) Alkaline Phosphatase 64 U/L Total Protein 7.3 GM/DL Albumin 3.4 GM/DL Physical Exam General General Appearance: Well Developed, Well Nourished, No Acute Distress, Comfortable Eyes Eye Exam: Pupils Equal, Pupils Reactive, Sclera White, Extraocular Movement Intact Ears & Nose Ears & Nose Exam: Nasal Mucosa [place] Throat Throat Exam: Oral Pharynx Normal Neck Neck Exam: Neck Supple, Trachea Midline Pulmonary Resp Remarks Bilateral wheezing...mild. Cardiology CV Exam: Regular, Normal Sinus Rhythm Gastrointestinal/Abdomen GI Exam: Soft, Non-Tender, Bowel Sounds Present Musculoskeletal MS Exam: Normal Gait, Normal Tone Integumentary Skin Exam: Clear, Warm, Dry Neurologic Neuro Exam: Alert, Awake, Speech Clear, Moving All Extremities, No Focal Deficits Psychiatric Psych Exam: Appropriate Responses VTE Prophylaxis VTE Prophylaxis Meds: Heparin PUD Prophylasis PUD Prophylaxis: Protonix Assessment/Plan Assessment/Plan ASSESSMENT AND PLAN This is a 70-year male who came to the ER, diagnosed with - 1. Sepsis on admission. The patient had hypotension with diaphoresis and with a pneumonia, most probably sepsis from pneumonia. The patient is on Zithromax 500 mg IV daily and aztreonam IV q. 8 hours. The patient's blood pressure is normal now. The patient also on DuoNeb nebulization. 2. Hypotension, most likely secondary to septic shock. The patient got IV fluids and Solu-Medrol and blood pressure is better now. 3. History of COPD. Continue home medications. 4. History of arthritis. Continue home medications. 5. History of hypothyroidism. Continue with levothyroxine 175 mcg p.o. daily . 6. History of hypertension. Continue the blood pressure medicine. We will monitor blood pressure closely. 7. History of insomnia. Continue home medication . 8. GERD. Protonix 40 mg p.o. daily. 9. DVT prophylaxis. Heparin 5000 units subcutaneous twice a day. 10. GI prophylaxis. Protonix 40 mg p.o. daily. 11. Dizziness. Continue with meclizine. 12. Diarrhea ...c- diff toxin positive on vancomycin PO...resolved. wants to go home today...ok to dc home today. f/u with pcp/pulmonary 1 week. Discussed Condition with: Patient Tobin Hairston MD July 14, 2016 08:23 Tobin Hairston MD July 14, 2016 08:23
[2016-07-14] MEDS: HYDROCHLOROTHIAZIDE 12.5 MG CAP PO SCH (08:43)
[2016-07-14] MEDS: VANCOMYCIN 500 MG VIAL (FOR ORAL USE ONLY) PO SCH (08:43)
[2016-07-14] MEDS: LOSARTAN 50 MG TAB PO SCH (08:43)
[2016-07-14] MEDS: PANTOPRAZOLE SOD 40 MG DELAYED RELEASE TAB PO SCH (08:43)
[2016-07-14] MEDS: CETIRIZINE HCL 10 MG TAB PO SCH (08:43)
[2016-07-14] MEDS: SODIUM CHLORIDE FLUSH BID IV FLUSH SCH (08:44)
[2016-07-14] MEDS: HEPARIN SODIUM - SQ 10,000 UNITS/ML VIAL SQ SCH (08:44)
[2016-07-14] MEDS ORDERED: ZITH500T PO (08:49)
[2016-07-14] MEDS ORDERED: VANC250C2 PO (08:49)
--- NOTE | 2016-07-18 10:45 | MB ---
cc: KYLER CHOI DATE OF CONSULTATION 07/12/[address] Webster REASON FOR CONSULTATION Evaluate for lung infiltrate. HISTORY OF PRESENT ILLNESS Mr. Valdez is a pleasant 70-year-old male with history of hypertension, hypothyroidism and gastroesophageal reflux disease. The patient says that over the last two weeks he has cough and congestion and fever up to 99 degrees. On the day of admission he was having congestion in his chest. He has recently went to [facility] and his physician gave him a prescription for cefuroxime to keep it with him. The patient started taking the cefuroxime at home. After taking the pill within 10 minutes he started feeling bad and he says he almost passed out. He was brought to the emergency room. He had a workup done. He had a CT of the chest that does not show any pulmonary embolism. It shows patchy infiltrate in the right upper and right lower lobe and scattered infiltrate in the left lung suggestive of inflammatory process. LABORATORY DATA His WBC count initially 6.1, today it is 15.3. Hemoglobin 12.6, hematocrit 37.5, MCV 90, platelet count 209. Sodium 138, potassium 3.6, chloride 104, CO2 26, BUN 21, creatinine 1.30. His blood gas pH 7.37, pCO2 39, pO2 92 on nonrebreather mask. His influenza antigen is negative. Blood culture so far is negative. His stool for C diff toxin is positive. The patient feels much better now. PAST MEDICAL HISTORY Significant for: 1. History of hypertension. 2. Arthritis. 3. Gastroesophageal reflux. 4. History of neck cancer. He had radiation treatment done 15 years ago. 5. He has history of frequent swelling of the face for which he requires prednisone. He says he had a workup done and no reason was found. MEDICATIONS He is currently takin. Zithromax 500 mg a day. 2. Vancomycin IV. 3. Amlodipine 10 milligrams day. 4. Albuterol/Atrovent nebulizer treatment. 5. Zyrtec 10 milligrams daily. 6. Levothyroxine 175 micrograms a day. 7. Losartan 100 mg a day. 8. Hydrochlorothiazide 12.5 milligrams a day. 9. Temazepam 30 milligrams daily. 10. Protonix 40 mg a day. 11. Aztreonam 2 grams q. 8-hour. 12. Heparin 5000 q. 12-hour. 13. Albuterol/Atrovent nebulizer treatment. ALLERGIES ARE LISTED AMOXICILLIN CEFUROXIME SODIUM METRONIDAZOLE ROCEPHIN. SOCIAL HISTORY for 15 years. He has remote history of smoking. Drinks socially. He has business of water treatment. FAMILY HISTORY He has stepchildren. REVIEW OF SYSTEMS Normally he is up, around and active. Denies any weight loss. No DVT or pulmonary embolism. No seizure, stroke or epilepsy. PHYSICAL EXAMINATION GENERAL: Shows an obese male not in any acute distress. VITAL SIGNS: Blood pressure 144/75, heart rate 94, respirations 20, temperature 97. HEENT: Pupils are equal and reactive to light. Oral mucosa, nasal mucosa normal. NECK: Supple. JVP not raised. CHEST: Air entry equal bilaterally. No rhonchi. CARDIOVASCULAR: S1, S2 normal. ABDOMEN: Benign. EXTREMITIES: No edema. IMPRESSION 1. Patchy lung infiltrate possible inflammatory process or pneumonia. 2. No pulmonary embolism. 3. History of CA of the neck. 4. Hypertension. 5. Leukocytosis. 6. C. difficile positive. PLAN Continue present antibiotic pending the cultures. Monitor his CBC. He is on subcu heparin for DVT prophylaxis. I advised him that he will need a repeat CT scan of the chest in about 6 weeks to make sure the infiltrates have completely resolved. Further treatment will depend on the course in the hospital. Thank you Dr. Webster for this consultation. MD PRIYANKA Pinto/BREE /6:55 PM /10:42 AM T[facility]
--- NOTE | 2016-07-19 08:26 | MD ---
cc: TOBIN QUIÑONEZ MD ADMISSION DATE: 07/11/2016 DISCHARGE DATE: 07/14/2016 Okay to discharge the patient home. Condition at the time of discharge: Satisfactory. Activity: As tolerated. Diet: Cardiac diet. ALLERGIES 1. AMOXICILLIN. 2. CEFUROXIME. 3. SODIUM METAMIZOLE. 4. ROCEPHIN. DISCHARGE MEDICATIONS 1. Losartan/hydrochlorothiazide 100/12.5, one p.o. daily. 2. Meclizine 25 mg p.o. daily. 3. Temazepam 30 mg p.o. daily. 4. Amlodipine 10 mg p.o. daily 5. Tramadol 50 mg p.o. q.6h. p.r.n. pain. 6. Prevacid 30 mg p.o. daily. 7. Levocetirizine 5 mg p.o. daily. 8. Levothyroxine 175 mcg p.o. daily. 9. Vancomycin 250 mg p.o. q.4h. for 7 days. Patient advised to follow-up with PCP in one week. ADMITTING DIAGNOSIS 1. On admission the patient had hypotension and diaphoresis, most likely secondary to pneumonia. The patient was given Zithromax IV and aztreonam. The patient's blood pressure improved. 2. Diarrhea. The patient had C. diff colitis. The patient was given vancomycin oral because of allergy to Flagyl. 3. Hypotension secondary to septic shock which is improved. 4. History of COPD, arthritis, hypothyroidism, hypertension, insomnia. HOSPITAL COURSE This is a 70-year-old male admitted with the above-mentioned complaint of hypotension. He took a leftover Cefuroxime pill and after taking that he became short of breath and extremely fatigued. He called 911 and the patient was brought to the ER. Blood pressure was 80/40. The patient was given IV fluids and Solu-Medrol. The patient remained stable. No acute event happened. The patient was seen by pulmonology, Dr. Tate. The patient was discharged in a satisfactory condition. Further details are in the medical record. Tobin Quiñonez MD EA/BT /8:47 AM /8:14 AM
== END 2016-07-14 10:39 | disposition home or self-care (01) | DRG 871 ==
LOC: PHED 16:07 → PHEDA 18:22 → PHICU 21:25 → PH3B 07-12 08:42
PROVIDERS: ADMIT Family Medicine; ATTEND Family Medicine
DX: A41.9 Sepsis, unspecified organism (principal); J18.9 Pneumonia, unspecified organism; R65.21 Severe sepsis with septic shock; I95.9 Hypotension, unspecified; A04.7 Enterocolitis due to Clostridium difficile; K21.9 Gastro-esophageal reflux disease without esophagitis; J44.0 Chronic obstructive pulmonary disease with (acute) lower respiratory infection; E03.9 Hypothyroidism, unspecified; I10 Essential (primary) hypertension; Z87.891 Personal history of nicotine dependence; Z92.3 Personal history of irradiation; Z85.89 Personal history of malignant neoplasm of other organs and systems; E66.9 Obesity, unspecified
CPT/HCPCS: 36600; 71010; 71275; 80053; 80076; 81001; 82550; 82805; 83605; 84484; 85025; 85610; 85730; 87040; 87493; 87641; 87804; 93005; 94640; 94664; 96365; 96366; J0456; J1200; J1644; J1956; J2930; J7030; J7050; Q9967